=== PATIENT | female | born 1980 | race Caucasian/White ===

== ENCOUNTER 2018-07-21 15:30 | Emergency (ER) | payer OTHER ==
--- NOTE | 2018-07-21 15:34 | PDOC ---
History of Present Illness - History of Present Illness Initial Comments: 07/21/18 16:17 The patient is a 38 year old female with a significant PMH of asthma who presents to the emergency department with a rash between the breast and upper abdomen for the past few days. Patient states the rash is burning and itchy. Patient reports it worsened yesterday prompting her to come to the ER. Patient applied cortisone cream 4-5 times a day for the past few days with no improvement. Patient denies any new pets, detergents, or unusual foods. The patient denies chest pain, shortness of breath, headache and dizziness. Denies fever, chills, nausea, vomit, diarrhea and constipation. Denies dysuria, frequency, urgency and hematuria. Allergies: NKA Past surgical history: None reported. Social history: No reported alcohol, drug or cigarette use. <Tracey Gibbs - Last Filed: 07/21/18 16:17> - General History Source: Patient Exam Limitations: No Limitations <Liz Powell - Last Filed: 07/22/18 09:14> - General Chief Complaint: Rash Stated Complaint: RASH TO AREA UNDER BREAST AND UPPER ABDOMEN Time Seen by Provider: 07/21/18 15:33 Past History <Tracey Gibbs - Last Filed: 07/21/18 16:17> - Past Medical History Asthma: Yes - Immunization History Immunization Up to Date: Yes - Suicide/Smoking/Psychosocial Hx Smoking Status: No Smoking History: Never smoked Have you smoked in the past 12 months: No Number of Cigarettes Smoked Daily: 0 'Breaking Loose' booklet given: 10/02/13 Hx Alcohol Use: No Drug/Substance Use Hx: No Substance Use Type: None <Liz Powell - Last Filed: 07/22/18 09:14> - Past Medical History Allergies/Adverse Reactions: Allergies Allergy/AdvReac Type Severity Reaction Status Date / Time No Known Allergies Allergy Verified 07/21/18 15:31 Home Medications: Ambulatory Orders Loratadine [Claritin] 10 mg PO DAILY #30 tablet 11/16/14 Montelukast Na [Singulair -] 10 mg PO DAILY 01/24/16 Cephalexin [Keflex] 500 mg PO QID #20 capsule 07/21/18 Clotrimazole [Antifungal] 113 gm TP BID #1 tube 07/21/18 Review of Systems - Review of Systems Able to Perform ROS?: Yes Comments:: 07/21/18 16:19 ADULT ROS GENERAL/CONSTITUTIONAL: No fever or chills. No weakness. HEAD, EYES, EARS, NOSE AND THROAT: No change in vision. No ear pain or discharge. No sore throat. CARDIOVASCULAR: No chest pain or shortness of breath. RESPIRATORY: No cough, wheezing, or hemoptysis. GASTROINTESTINAL: No nausea, vomiting, diarrhea or constipation. GENITOURINARY: No dysuria, frequency, or change in urination. MUSCULOSKELETAL: No joint or muscle swelling or pain. No neck or back pain. SKIN: (+) rash NEUROLOGIC: No headache, vertigo, loss of consciousness, or change in strength/ sensation. ENDOCRINE: No increased thirst. No abnormal weight change. HEMATOLOGIC/LYMPHATIC: No anemia, easy bleeding, or history of blood clots. ALLERGIC/IMMUNOLOGIC: No hives or skin allergy. <Tracey Gibbs - Last Filed: 07/21/18 16:17> *Physical Exam - Vital Signs Last Vital Signs Temp Pulse Resp BP Pulse Ox 98.4 F 80 16 129/75 99 07/21/18 15:31 07/21/18 15:31 07/21/18 15:31 07/21/18 15:31 07/21/18 15:31 - Physical Exam Comments: 07/21/18 16:19 ADULT PE GENERAL: The patient is in no acute distress. HEAD: Normal with no signs of trauma. EYES: PERRLA, EOMI, sclera anicteric, conjunctiva clear. ENT: Ears normal, nares patent, oropharynx clear without exudates. Moist mucous membranes. NECK: Normal range of motion, supple without lymphadenopathy, JVD, or masses. LUNGS: Breath sounds equal, clear to auscultation bilaterally. No wheezes, and no crackles. HEART:Regular rate and rhythm, normal S1 and S2 without murmur, rub or gallop. ABDOMEN: Soft, nontender, normoactive bowel sounds. No guarding, no rebound. No masses palpable. EXTREMITIES: Normal range of motion, no edema. No clubbing or cyanosis. No erythema, or tenderness. NEUROLOGICAL: Cranial nerves II through XII grossly intact. Normal speech. No focal neurological deficits. MUSCULOSKELETAL: Back non-tender to palpation, no CVA tenderness SKIN: Warm, Dry, normal turgor.(+) Chest wall under the inframammary fold has a diffuse erythematous rash, pruritic, small macular lesions. No vesicles. No pustules. <Tracey Gibbs - Last Filed: 07/21/18 16:17> Medical Decision Making - Medical Decision Making 07/21/18 16:23 38 yo F presenting with a rash inframammary ? fungal infection Pt placed cortisone cream on the area Pt noted increased redness and swelling Differential diagnosis is still broad - fungal infection vs. contact dermatitis vs. super infection Will ask pt to hold on steroid cream Will ask pt to start taking antifungal Will ask pt to start taking keflex Follow up with in 2 days clinical impression: rash, initial presentation 07/22/18 09:14 <Liz Powell - Last Filed: 07/22/18 09:14> *DC/Admit/Observation/Transfer - Attestations Scribe Attestion: 07/21/18 16:22 Documentation prepared by Tracey Gibbs, acting as emergency medical service manager for Liz Powell MD. <Tracey Gibbs - Last Filed: 07/21/18 16:17> - Discharge Dispostion Decision to Admit order: No <Liz Powell - Last Filed: 07/22/18 09:14> Diagnosis at time of Disposition: Rash and nonspecific skin eruption - Discharge Dispostion Disposition: HOME Condition at time of disposition: Stable - Prescriptions Prescriptions: Cephalexin [Keflex] 500 mg PO QID #20 capsule Clotrimazole [Antifungal] 113 gm TP BID #1 tube - Referrals Referrals: Cristina Rain [Staff Physician] - - Patient Instructions Printed Discharge Instructions: DI for Rash Additional Instructions: Ms brewer Thank you for coming in to the ER today Please be sure to follow up with your primary care physician or the 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
[2018-07-21 15:37] VITALS: BP 129/75; PULSE 80; TEMP 98.4; BMI 31.7
== END 2018-07-21 17:06 | disposition home or self-care (01) ==
LOC: FER 15:30
DX: R21 Rash and other nonspecific skin eruption (principal); J45.909 Unspecified asthma, uncomplicated
CPT/HCPCS: 99281-25

== ENCOUNTER 2019-02-15 10:18 | Emergency (ER) | payer OTHER | END 2019-02-15 13:14 | disposition home or self-care (01) | LOC: FER 10:18 ==

== ENCOUNTER 2021-03-08 19:10 | Emergency (ER) | payer OTHER ==
[2021-03-08 19:28] VITALS: BP 159/85; PULSE 89; TEMP 99; BMI 25.0
[2021-03-08] MEDS ORDERED: IBUPROFEN 600 MG TABLET (FP) PO ONE (20:22)
[2021-03-08] MEDS ORDERED: IBUPROFEN 400 MG TABLET (FP) PO ONE (20:25)
== END 2021-03-08 20:27 | disposition home or self-care (01) ==
LOC: FER 19:10
DX: L02.215 Cutaneous abscess of perineum (principal)
CPT/HCPCS: 87070; 87077; 87205; 99283-25

== ENCOUNTER 2021-06-11 19:22 | Emergency (ER) | payer OTHER ==
[2021-06-11] MEDS ORDERED: ACETAMINOPHEN 500 MG TABLET (FP) PO ONE (19:39)
[2021-06-11 19:54] VITALS: BP 149/85; PULSE 112; TEMP 99; BMI 22.9
[2021-06-11] MEDS ORDERED: ACETAMINOPHEN 500 MG TABLET (FP) ONE (20:00)
== END 2021-06-11 20:43 | disposition home or self-care (01) ==
LOC: FER 19:22
DX: S99.922A Unspecified injury of left foot, initial encounter (principal); W22.8XXA Striking against or struck by other objects, initial encounter
CPT/HCPCS: 73660-TC-LT-FY; 99283-25

== ENCOUNTER 2023-02-17 18:50 | Emergency (ER) | payer OTHER ==
[2023-02-17 19:19] VITALS: BP 145/93; PULSE 91; RESP 18; TEMP 97.8; BMI 19.3
[2023-02-17] MEDS ORDERED: KETOROLAC TROMETHAMINE 60 MG/2 ML VIAL IM ONE (19:32)
[2023-02-17] MEDS ORDERED: predniSONE 20 MG TABLET (UD) PO ONE (19:32)
[2023-02-17] MEDS ORDERED: KETOROLAC TROMETHAMINE 60 MG/2 ML VIAL ONE (19:41)
[2023-02-17] MEDS ORDERED: predniSONE 20 MG TABLET (UD) ONE (19:41)
== END 2023-02-17 20:48 | disposition home or self-care (01) ==
LOC: FER 18:50
PROC: 3E0233Z Introduction of Anti-inflammatory into Muscle, Percutaneous Approach (ICD-10-PCS; principal; 2023-02-17)
DX: M54.42 Lumbago with sciatica, left side (principal); M54.41 Lumbago with sciatica, right side; R07.9 Chest pain, unspecified
CPT/HCPCS: 93005; 99284-25

== ENCOUNTER 2023-03-24 05:59 | Inpatient (IN) | payer OTHER ==
[2023-03-24] MEDS ORDERED: SODIUM CHLORIDE 1,000 ML IV ONE (06:45)
[2023-03-24 08:38] LABS: HEMATOCRIT 51.4 % (32.4-45.2); HEMOGLOBIN 17.5 G/dL (10.7-15.3); MCH 30.6 pg (25.7-33.7); MEAN CELL VOLUME 90.2 fl (80-96); MEAN PLT VOLUME 9.1 fl (7.5-11.1); PLATELET COUNT 338.2 10^3/uL (134-434); RDW 13.2 % (11.6-15.6); WHITE BLOOD COUNT 23.2 10^3/uL (4.0-10.8)
[2023-03-24 09:04] LABS: ALBUMIN 4.8 g/dl (3.4-5.0); BILIRUBIN,TOTAL 0.4 mg/dl (0.2-1); BLOOD UREA NITROGEN 19.3 mg/dl (7-18); CALCIUM 10.3 mg/dl (8.5-10.1); CREATININE 0.9 mg/dl (0.6-1.3); POTASSIUM 4.4 mmol/L (3.5-5.1); SGOT/AST 27.2 U/L (15-37); TOT PROT 8.2 g/dl (6.4-8.2)
[2023-03-24 09:23] LABS: PLATELET ESTIMATE ADEQUATE
[2023-03-24] MEDS ORDERED: ONDANSETRON 4 MG/2 ML VIAL IVPB ONE (09:24)
[2023-03-24] MEDS ORDERED: SODIUM CHLORIDE 1,000 ML IV STA ×2 (09:24→10:25)
[2023-03-24] MEDS ORDERED: FAMOTIDINE 20 MG/50 ML IVPB 20 MG/50 ML MG IVPB ONE ×2 (09:25→10:04)
[2023-03-24 09:47] LABS: VENOUS BASE EXCESS -23.2 mmol/L (-2-2); VENOUS O2 SATURATION 86.6 % (70-80); VENOUS PCO2 25.9 mmHg (38-52)
[2023-03-24 09:49] LABS: VENOUS PH 7.018 (7.310-7.410)
[2023-03-24 10:02] LABS: LACTIC ACID 2.3 mmol/L (0.4-2.0)
[2023-03-24] MEDS ORDERED: ONDANSETRON 4 MG/2 ML VIAL ONE (10:04)
[2023-03-24 11:03] LABS: EPITHELIAL CELLS RARE /hpf
[2023-03-24 12:48] LABS: HEMATOCRIT 47.4 % (32.4-45.2); HEMOGLOBIN 16.5 G/dL (10.7-15.3); MCH 31.5 pg (25.7-33.7); MCHC 34.8 g/dl (32.0-36.0); MEAN CELL VOLUME 90.4 fl (80-96); MEAN PLT VOLUME 8.9 fl (7.5-11.1); PLATELET COUNT 309.5 10^3/uL (134-434); RBC 5.24 10^6/uL (3.60-5.2); RDW 13.1 % (11.6-15.6); WHITE BLOOD COUNT 22.4 10^3/uL (4.0-10.8)
[2023-03-24 12:51] LABS: ALBUMIN 4.1 g/dl (3.4-5.0); BILIRUBIN,TOTAL 0.3 mg/dl (0.2-1); CALCIUM 8.4 mg/dl (8.5-10.1); CREATININE 0.7 mg/dl (0.6-1.3); POTASSIUM 4.3 mmol/L (3.5-5.1); SGOT/AST 26.5 U/L (15-37); SGPT/ALT 31.9 U/L (7-52); TOT PROT 7.1 g/dl (6.4-8.2)
[2023-03-24 13:51] LABS: VENOUS BASE EXCESS -26.7 mmol/L (-2-2); VENOUS O2 SATURATION 83.3 % (70-80); VENOUS PCO2 27.4 mmHg (38-52)
[2023-03-24] MEDS ORDERED: INSULIN REGULAR HUMAN 100 UNITS/ML *VIAL* (FOR IVP) IVPUSH ONE ×2 (13:53→18:23)
[2023-03-24 13:56] LABS: VENOUS PH 6.912 (7.310-7.410)
[2023-03-24] MEDS ORDERED: DEXTROSE 5%-NORMAL SALINE 1,000 ML IV SCH (14:00)
[2023-03-24] MEDS ORDERED: INSULIN REGULAR 100 UNITS in SODIUM CHLORIDE 99 ML IVPB SCH ×4 (14:00→18:30)
[2023-03-24 14:14] LABS: LACTIC ACID 2.3 mmol/L (0.4-2.0)
[2023-03-24] MEDS ORDERED: INSULIN REGULAR HUMAN 100 UNITS/ML *VIAL ONE ×3 (14:22→19:09)
[2023-03-24] MEDS ORDERED: DEXTROSE 5%-0.45% SALINE 995 ML with POTASSIUM CHLORIDE 10 MEQ IV SCH (14:30)
[2023-03-24] MEDS: POTASSIUM CHLORIDE 10 MEQ in DEXTROSE 5%-0.45% SALINE 995 ML IV SCH ×2 (15:02→18:09)
[2023-03-24] MEDS ORDERED: D5-1/2NS+20 MEQ KCL - 1,000 ML IV SCH (18:00)
[2023-03-24] MEDS ORDERED: DEXTROSE 50%-WATER 25 GM/50 ML DISP.SYRIN IVPUSH PRN (18:23)
[2023-03-24] MEDS ORDERED: ONDANSETRON 4 MG/2 ML VIAL IVPUSH PRN (18:23)
[2023-03-24] MEDS ORDERED: METOPROLOL TARTRATE 5 MG/5 ML VIAL IVPUSH ONE (18:53)
[2023-03-24 19:02] LABS: BASO % 0.1 % (0-2.0); HEMATOCRIT 44.3 % (32.4-45.2); HEMOGLOBIN 14.1 GM/dL (10.7-15.3); LYMPH % 5.7 % (8-40); MCH 28.9 pg (25.7-33.7); MCHC 31.7 g/dl (32.0-36.0); MEAN CELL VOLUME 91.2 fl (80-96); MEAN PLT VOLUME 8.9 fl (7.5-11.1); MONO % 10.7 % (3.8-10.2); NEUT % 83.5 % (42.8-82.8); PLATELET COUNT 299 10^3/uL (134-434); RBC 4.86 M/mm3 (3.60-5.2); RDW 12.6 % (11.6-15.6); WHITE BLOOD COUNT 18.4 K/mm3 (4.0-10.0)
[2023-03-24 19:09] LABS: POTASSIUM 3.5 mmol/L (3.5-5.1)
[2023-03-24 19:11] LABS: CALCIUM 9.2 mg/dL (8.5-10.1)
[2023-03-24 19:12] LABS: BLOOD UREA NITROGEN 16.8 mg/dL (7-18)
[2023-03-24 19:15] LABS: CREATININE 1.1 mg/dL (0.55-1.3)
[2023-03-24 19:16] LABS: BILIRUBIN,TOTAL 0.2 mg/dL (0.2-1)
[2023-03-24] MEDS: PARoxetine HCL 10 MG TABLET PO SCH (19:20)
[2023-03-24 19:21] LABS: LACTIC ACID 3.6 mmol/L (0.4-2.0)
[2023-03-24 19:21] LABS: ALBUMIN 2.9 g/dl (3.4-5.0); TOT PROT 6.6 g/dl (6.4-8.2)
[2023-03-24] MEDS ORDERED: LACTATED RINGERS SOLUTION 1000 ML INFUS.BAG IV ONE (20:22)
[2023-03-24 21:13] LABS: POTASSIUM 3.6 mmol/L (3.5-5.1)
[2023-03-24 21:16] LABS: CALCIUM 9.5 mg/dL (8.5-10.1)
[2023-03-24 21:17] LABS: ALBUMIN 2.9 g/dl (3.4-5.0); BLOOD UREA NITROGEN 17.2 mg/dL (7-18)
[2023-03-24 21:20] LABS: CREATININE 1.1 mg/dL (0.55-1.3)
[2023-03-24 21:21] LABS: BILIRUBIN,TOTAL 0.4 mg/dL (0.2-1); TOT PROT 6.4 g/dl (6.4-8.2)
[2023-03-24] MEDS: KCL 10 MEQ IVPB 10 MEQ/100 ML INFUS.BAG IVPB SCH ×2 (21:27→21:51)
[2023-03-24] MEDS: INSULIN SLIDING SCALE (NOVOLOG) 1 VIAL SQ SCH (21:29)
[2023-03-24] MEDS: MUPIROCIN 2% TOPICAL OINTMENT FOR DECOLONIZATION NS SCH (21:52)
[2023-03-24] MEDS: CHLORHEXIDINE GLUCONATE 4% CLEANSER FOR DECOLONIZATION TP SCH (21:53)
[2023-03-24 21:57] LABS: VENOUS BASE EXCESS -16.7 mmol/L (-2-2); VENOUS O2 SATURATION 21.2 % (70-80); VENOUS PCO2 32.5 mmHg (38-52)
[2023-03-24 21:58] LABS: VENOUS PH 7.148 (7.310-7.410)
[2023-03-24] MEDS ORDERED: LACTATED RINGERS SOLUTION 1,000 ML/1,000 ML INFUS.BAG IV SCH (22:30)
[2023-03-24 22:36] LABS: LACTIC ACID 2.1 mmol/L (0.4-2.0)
[2023-03-25] MEDS ORDERED: ACETAMINOPHEN 1000 MG/100 ML BAG IVPB ONE (00:18)
[2023-03-25] MEDS ORDERED: INSULIN (NOVOLOG) ASPART 100 UNITS/ML 10ML VIAL ONE ×4 (00:31→20:59)
[2023-03-25] MEDS: INSULIN SLIDING SCALE (NOVOLOG) 1 VIAL SQ SCH ×6 (00:32→21:22)
[2023-03-25 06:00] LABS: HEMATOCRIT 37.7 % (32.4-45.2); HEMOGLOBIN 12.7 GM/dL (10.7-15.3); MCH 29.4 pg (25.7-33.7); MCHC 33.6 g/dl (32.0-36.0); MEAN CELL VOLUME 87.4 fl (80-96); MEAN PLT VOLUME 9.5 fl (7.5-11.1); PLATELET COUNT 216 10^3/uL (134-434); RBC 4.31 M/mm3 (3.60-5.2); RDW 12.5 % (11.6-15.6); WHITE BLOOD COUNT 15.2 K/mm3 (4.0-10.0)
[2023-03-25 06:07] LABS: INR 1.13 (0.83-1.09); PROTHROMBIN TIME (PATIENT) 13.1 SEC (9.7-13.0)
[2023-03-25 06:36] LABS: CHLORIDE 115 mmol/L (98-107); SODIUM 141 mmol/L (136-145)
[2023-03-25 06:38] LABS: GLUCOSE,RANDOM 179 mg/dL (74-106)
[2023-03-25 06:39] LABS: ALBUMIN 2.4 g/dl (3.4-5.0); BLOOD UREA NITROGEN 11.8 mg/dL (7-18); CO2 11 mmol/L (21-32); MAGNESIUM 1.6 mg/dL (1.8-2.4)
[2023-03-25 06:41] LABS: SGPT/ALT 31 U/L (13-61)
[2023-03-25 06:42] LABS: CREATININE 0.8 mg/dL (0.55-1.3); SGOT/AST 22 U/L (15-37)
[2023-03-25 06:43] LABS: BILIRUBIN,TOTAL 0.2 mg/dL (0.2-1); TOT PROT 5.5 g/dl (6.4-8.2)
[2023-03-25 06:44] LABS: ALK PHOS 102 U/L (45-117)
[2023-03-25 06:47] LABS: ANION GAP 15 MMOL/L (8-16); POTASSIUM 2.9 mmol/L (3.5-5.1)
[2023-03-25] MEDS ORDERED: POTASSIUM CHLORIDE TABS 20 MEQ TABLET.ER (FP) PO ONE (06:49)
[2023-03-25] MEDS: KCL 10 MEQ IVPB 10 MEQ/100 ML INFUS.BAG IVPB SCH ×3 (07:19→10:46)
[2023-03-25] MEDS ORDERED: [UNRECOGNIZED DRUG - OTHER] IVPB ONE (08:00)
[2023-03-25] MEDS ORDERED: MAGNESIUM SULFATE IVPB ONE (08:00)
[2023-03-25 09:14] LABS: ANISOCYTOSIS 0; MACROCYTOSIS 0
[2023-03-25 09:33] LABS: PHOSPHOROUS 1.4 mg/dL (2.5-4.9)
[2023-03-25] MEDS: MUPIROCIN 2% TOPICAL OINTMENT FOR DECOLONIZATION NS SCH ×2 (11:20→21:32)
[2023-03-25] MEDS: ENOXAPARIN NA (PORCINE) 40 MG/0.4 ML DISP.SYRIN SQ SCH (11:21)
[2023-03-25] MEDS: PARoxetine HCL 10 MG TABLET PO SCH (11:21)
[2023-03-25] MEDS ORDERED: FAMOTIDINE 20 MG TABLET PO ONE (12:55)
[2023-03-25] MEDS: EZETIMIBE 10 MG TABLET (FP) PO SCH (12:56)
[2023-03-25] MEDS: BENZOCAINE/MENTH/CETYLPYRD CL 1 EACH LOZENGE MM PRN ×2 (13:24→21:22)
[2023-03-25] MEDS: BUDESONIDE/FORMETEROL FUMARATE 160/4.5 mcg INHALER IH SCH ×2 (13:24→21:32)
[2023-03-25] MEDS: CEFTRIAXONE 1 GM in DEXTROSE 5%-WATER - 50 ML IVPB SCH (13:55)
[2023-03-25] MEDS ORDERED: LACTATED RINGERS SOLUTION 1000 ML INFUS.BAG IV SCH (14:45)
[2023-03-25] MEDS: ACETAMINOPHEN 1000 MG/100 ML BAG IVPB PRN ×2 (15:02→21:56)
[2023-03-25 15:08] LABS: POTASSIUM 3.9 mmol/L (3.5-5.1)
[2023-03-25 15:09] LABS: CALCIUM 9.7 mg/dL (8.5-10.1)
[2023-03-25 15:10] LABS: BLOOD UREA NITROGEN 10.1 mg/dL (7-18); MAGNESIUM 1.7 mg/dL (1.8-2.4)
[2023-03-25 15:13] LABS: CREATININE 0.9 mg/dL (0.55-1.3); PHOSPHOROUS 1.8 mg/dL (2.5-4.9)
[2023-03-25] MEDS ORDERED: PROCHLORPERAZINE INJECTION 10 MG/2 ML VIAL IVPB ONE (15:36)
[2023-03-25] MEDS ORDERED: hydrOXYzine PAMOATE 25 MG CAPSULE (FP) PO ONE (15:42)
[2023-03-25] MEDS ORDERED: MAGNESIUM SULF 50% (8.12 MEQ/2 ML-1 GM VIAL) IVPB ONE (15:50)
[2023-03-25] MEDS ORDERED: ALPRAZolam 0.25 MG TABLET PO ONE (15:54)
[2023-03-25] MEDS: NAPH,MB-DB/K PH,MBDB POWDER PACKET PO SCH ×2 (16:07→21:23)
[2023-03-25] MEDS: SODIUM BICARBONATE 650 MG TABLET PO SCH ×2 (16:51→21:23)
[2023-03-25] MEDS: NYSTATIN 500,000 UNITS/5 ML SUSPENSION PO SCH (17:49)
[2023-03-25] MEDS: SODIUM CHLORIDE 0.45%/POT 20 MEQ/1,000 ML INFUS.BAG IV SCH (21:22)
[2023-03-25] MEDS: ATORVASTATIN CA 20 MG TABLET (FP) PO SCH (21:22)
[2023-03-25] MEDS: CYCLOBENZAPRINE HCL 10 MG TABLET (FP) PO SCH (21:22)
[2023-03-25] MEDS: CHLORHEXIDINE GLUCONATE 4% CLEANSER FOR DECOLONIZATION TP SCH (21:23)
[2023-03-25] MEDS: TRIMETHOBENZAMIDE HCL 200MG/2ML INJ IM PRN (21:39)
[2023-03-26] MEDS ORDERED: INSULIN (NOVOLOG) ASPART 100 UNITS/ML 10ML VIAL ONE (00:17)
[2023-03-26] MEDS: INSULIN SLIDING SCALE (NOVOLOG) 1 VIAL SQ SCH ×6 (00:18→21:48)
[2023-03-26] MEDS: NYSTATIN 500,000 UNITS/5 ML SUSPENSION PO SCH ×3 (00:18→13:26)
[2023-03-26] MEDS: SODIUM CHLORIDE 0.45%/POT 20 MEQ/1,000 ML INFUS.BAG IV SCH ×2 (05:36→13:53)
[2023-03-26] MEDS: NAPH,MB-DB/K PH,MBDB POWDER PACKET PO SCH (05:38)
[2023-03-26] MEDS: ACETAMINOPHEN 1000 MG/100 ML BAG IVPB PRN (05:49)
[2023-03-26 07:16] LABS: BASO % 0.1 % (0-2.0); HEMATOCRIT 36.1 % (32.4-45.2); HEMOGLOBIN 12.3 GM/dL (10.7-15.3); LYMPH % 6.5 % (8-40); MCH 29.7 pg (25.7-33.7); MCHC 34.2 g/dl (32.0-36.0); MEAN PLT VOLUME 9.2 fl (7.5-11.1); MONO % 7.9 % (3.8-10.2); NEUT % 85.5 % (42.8-82.8); PLATELET COUNT 152 10^3/uL (134-434); RBC 4.15 M/mm3 (3.60-5.2); RDW 12.6 % (11.6-15.6); WHITE BLOOD COUNT 10.4 K/mm3 (4.0-10.0)
[2023-03-26 07:37] LABS: POTASSIUM 3.3 mmol/L (3.5-5.1)
[2023-03-26 07:57] LABS: CALCIUM 9.2 mg/dL (8.5-10.1)
[2023-03-26 07:58] LABS: ALBUMIN 2.1 g/dl (3.4-5.0); BLOOD UREA NITROGEN 11.2 mg/dL (7-18); MAGNESIUM 2.3 mg/dL (1.8-2.4)
[2023-03-26 08:01] LABS: CREATININE 0.7 mg/dL (0.55-1.3); PHOSPHOROUS 2.5 mg/dL (2.5-4.9)
[2023-03-26 08:02] LABS: BILIRUBIN,TOTAL 0.4 mg/dL (0.2-1)
[2023-03-26 08:03] LABS: TOT PROT 5.2 g/dl (6.4-8.2)
[2023-03-26] MEDS: MUPIROCIN 2% TOPICAL OINTMENT FOR DECOLONIZATION NS SCH ×2 (09:03→21:31)
[2023-03-26] MEDS: ENOXAPARIN NA (PORCINE) 40 MG/0.4 ML DISP.SYRIN SQ SCH (09:03)
[2023-03-26] MEDS: PARoxetine HCL 10 MG TABLET PO SCH (09:03)
[2023-03-26] MEDS: EZETIMIBE 10 MG TABLET (FP) PO SCH (09:03)
[2023-03-26] MEDS: CEFTRIAXONE 1 GM in DEXTROSE 5%-WATER - 50 ML IVPB SCH (09:04)
[2023-03-26] MEDS: BUDESONIDE/FORMETEROL FUMARATE 160/4.5 mcg INHALER IH SCH ×2 (09:04→21:31)
[2023-03-26] MEDS ORDERED: POTASSIUM CHLORIDE ORAL LIQUID 20 MEQ/15 ML PO ONE (09:15)
[2023-03-26] MEDS: INSULIN (LEVEMIR) 100 UNITS/ML UNITS SQ SCH ×2 (10:32→21:48)
[2023-03-26] MEDS: TRIMETHOBENZAMIDE HCL 200MG/2ML INJ IM PRN (10:34)
[2023-03-26] MEDS ORDERED: CEFTRIAXONE 1 GM in DEXTROSE 5%-WATER - 50 ML IVPB ONE ×2 (13:57→22:00)
[2023-03-26] MEDS: METOCLOPRAMIDE HCL INJECTION 10 MG/2 ML VIAL IVPUSH SCH ×2 (14:07→21:31)
[2023-03-26] MEDS: KCL 10 MEQ IVPB 10 MEQ/100 ML INFUS.BAG IVPB SCH ×3 (14:08→18:31)
[2023-03-26] MEDS: SODIUM BICARBONATE 650 MG TABLET PO SCH ×2 (14:09→21:30)
[2023-03-26] MEDS: PANTOPRAZOLE SODIUM 40 MG VIAL IVPUSH SCH (14:15)
[2023-03-26 15:40] VITALS: BMI 19.4
[2023-03-26] MEDS ORDERED: ACETAMINOPHEN 1000 MG/100 ML BAG IVPB ONE (17:19)
[2023-03-26] MEDS: MAG HYDROX/ALH/SMC/DPHA/LIDO 240 ML MOUTHWASH MM SCH (18:32)
[2023-03-26] MEDS ORDERED: PHENOL 177 ML SPRAY BOTTLE MM PRN (19:37)
[2023-03-26] MEDS: ATORVASTATIN CA 20 MG TABLET (FP) PO SCH (21:30)
[2023-03-26] MEDS: CYCLOBENZAPRINE HCL 10 MG TABLET (FP) PO SCH (21:30)
[2023-03-26] MEDS: POLYETHYLENE GLYCOL (HEALTHYLAX) 3350 17 GM PACKET PO SCH (21:31)
[2023-03-26] MEDS: CHLORHEXIDINE GLUCONATE 4% CLEANSER FOR DECOLONIZATION TP SCH (21:31)
[2023-03-27] MEDS: INSULIN SLIDING SCALE (NOVOLOG) 1 VIAL SQ SCH ×6 (02:11→21:17)
[2023-03-27] MEDS: MAG HYDROX/ALH/SMC/DPHA/LIDO 240 ML MOUTHWASH MM SCH ×4 (02:11→19:03)
[2023-03-27] MEDS: METOCLOPRAMIDE HCL INJECTION 10 MG/2 ML VIAL IVPUSH SCH ×2 (02:42→09:10)
[2023-03-27] MEDS ORDERED: DEXTROSE 50%-WATER - 25 GM/50 ML VIAL IVPUSH ONE (05:29)
[2023-03-27] MEDS: INSULIN (LEVEMIR) 100 UNITS/ML UNITS SQ SCH ×2 (06:13→22:51)
[2023-03-27] MEDS: POLYETHYLENE GLYCOL (HEALTHYLAX) 3350 17 GM PACKET PO SCH ×2 (09:08→22:44)
[2023-03-27] MEDS: ENOXAPARIN NA (PORCINE) 40 MG/0.4 ML DISP.SYRIN SQ SCH (09:11)
[2023-03-27] MEDS: PANTOPRAZOLE SODIUM 40 MG VIAL IVPUSH SCH (09:11)
[2023-03-27] MEDS: PARoxetine HCL 10 MG TABLET PO SCH (09:12)
[2023-03-27] MEDS: EZETIMIBE 10 MG TABLET (FP) PO SCH (09:12)
[2023-03-27] MEDS: MUPIROCIN 2% TOPICAL OINTMENT FOR DECOLONIZATION NS SCH (09:12)
[2023-03-27] MEDS: BUDESONIDE/FORMETEROL FUMARATE 160/4.5 mcg INHALER IH SCH (09:12)
[2023-03-27] MEDS ORDERED: CEFTRIAXONE 2 GM in DEXTROSE 5%-WATER 100 ML IVPB ONE (10:00)
[2023-03-27 16:12] LABS: BASO % 0.3 % (0-2.0); EOS % 0.2 % (0-4.5); HEMATOCRIT 35.3 % (32.4-45.2); HEMOGLOBIN 11.8 GM/dL (10.7-15.3); MCHC 33.4 g/dl (32.0-36.0); MEAN CELL VOLUME 86.9 fl (80-96); MEAN PLT VOLUME 9.5 fl (7.5-11.1); MONO % 10.9 % (3.8-10.2); NEUT % 76.6 % (42.8-82.8); PLATELET COUNT 124 10^3/uL (134-434); RBC 4.06 M/mm3 (3.60-5.2); RDW 12.9 % (11.6-15.6)
[2023-03-27 16:54] LABS: CHLORIDE 105 mmol/L (98-107); SODIUM 142 mmol/L (136-145)
[2023-03-27 16:59] LABS: CALCIUM 8.6 mg/dL (8.5-10.1)
[2023-03-27 17:00] LABS: CO2 23 mmol/L (21-32); GLUCOSE,RANDOM 134 mg/dL (74-106)
[2023-03-27 17:03] LABS: CREATININE 0.4 mg/dL (0.55-1.3); SGOT/AST 26 U/L (15-37); SGPT/ALT 36 U/L (13-61)
[2023-03-27 17:04] LABS: BILIRUBIN,TOTAL 0.5 mg/dL (0.2-1)
[2023-03-27] MEDS: SODIUM CHLORIDE 0.45%/POT 20 MEQ/1,000 ML INFUS.BAG IV SCH ×2 (17:05→19:19)
[2023-03-27 17:06] LABS: ALK PHOS 128 U/L (45-117)
[2023-03-27 17:08] LABS: N-TERMINAL BNP 7306.4 pg/ml (5-125)
[2023-03-27 17:11] LABS: ANION GAP 14 MMOL/L (8-16); POTASSIUM 2.9 mmol/L (3.5-5.1)
[2023-03-27] MEDS: SUCRALFATE 1 GM TABLET (FP) PO SCH (17:19)
[2023-03-27] MEDS ORDERED: POTASSIUM CHLORIDE TABS 20 MEQ TABLET.ER (FP) PO ONE (18:00)
[2023-03-27] MEDS ORDERED: INSULIN (NOVOLOG) ASPART 100 UNITS/ML 10ML VIAL ONE (18:16)
[2023-03-27] MEDS ORDERED: PHENOL 177 ML SPRAY BOTTLE MM PRN (18:49)
[2023-03-27] MEDS ORDERED: BENZOCAINE/MENTH/CETYLPYRD CL 1 EACH LOZENGE MM PRN (18:49)
[2023-03-27] MEDS ORDERED: DEXTROSE 50%-WATER 25 GM/50 ML DISP.SYRIN IVPUSH PRN (18:49)
[2023-03-27] MEDS: KCL 10 MEQ IVPB 10 MEQ/100 ML INFUS.BAG IVPB SCH ×4 (18:56→22:43)
[2023-03-27] MEDS ORDERED: CHLORHEXIDINE GLUCONATE 4% CLEANSER FOR DECOLONIZATION TP SCH (22:00)
[2023-03-27] MEDS ORDERED: MUPIROCIN 2% TOPICAL OINTMENT FOR DECOLONIZATION NS SCH (22:00)
[2023-03-27] MEDS: ATORVASTATIN CA 20 MG TABLET (FP) PO SCH (22:30)
[2023-03-27] MEDS: CYCLOBENZAPRINE HCL 10 MG TABLET (FP) PO SCH (22:43)
[2023-03-28] MEDS: MAG HYDROX/ALH/SMC/DPHA/LIDO 240 ML MOUTHWASH MM SCH ×4 (00:58→17:24)
[2023-03-28] MEDS: BUDESONIDE/FORMETEROL FUMARATE 160/4.5 mcg INHALER IH SCH ×3 (01:36→23:39)
[2023-03-28] MEDS: SUCRALFATE 1 GM TABLET (FP) PO SCH ×2 (06:20→17:17)
[2023-03-28] MEDS: INSULIN (LEVEMIR) 100 UNITS/ML UNITS SQ SCH ×2 (07:19→23:37)
[2023-03-28] MEDS: CEFTRIAXONE 2 GM in DEXTROSE 5%-WATER 100 ML IVPB SCH (09:47)
[2023-03-28] MEDS: PARoxetine HCL 10 MG TABLET PO SCH (09:48)
[2023-03-28] MEDS: EZETIMIBE 10 MG TABLET (FP) PO SCH (09:48)
[2023-03-28] MEDS: POLYETHYLENE GLYCOL (HEALTHYLAX) 3350 17 GM PACKET PO SCH ×2 (09:51→23:38)
[2023-03-28 10:03] LABS: POTASSIUM 3.2 mmol/L (3.5-5.1)
[2023-03-28 10:07] LABS: BLOOD UREA NITROGEN 5.8 mg/dL (7-18); CALCIUM 8.5 mg/dL (8.5-10.1)
[2023-03-28 10:08] LABS: MAGNESIUM 1.9 mg/dL (1.8-2.4)
[2023-03-28 10:10] LABS: CREATININE 0.4 mg/dL (0.55-1.3); PHOSPHOROUS 1.5 mg/dL (2.5-4.9)
[2023-03-28 10:12] LABS: BILIRUBIN,TOTAL 0.3 mg/dL (0.2-1); TOT PROT 5.2 g/dl (6.4-8.2)
[2023-03-28] MEDS: ENOXAPARIN NA (PORCINE) 40 MG/0.4 ML DISP.SYRIN SQ SCH (10:40)
[2023-03-28] MEDS: PANTOPRAZOLE SODIUM 40 MG VIAL IVPUSH SCH (10:49)
[2023-03-28] MEDS ORDERED: POTASSIUM CHLORIDE ORAL LIQUID 20 MEQ/15 ML PO ONE (11:50)
[2023-03-28] MEDS: INSULIN SLIDING SCALE (NOVOLOG) 1 VIAL SQ SCH ×3 (12:00→18:32)
[2023-03-28] MEDS: NAPH,MB-DB/K PH,MBDB POWDER PACKET PO SCH ×2 (14:48→23:38)
[2023-03-28] MEDS: KCL 10 MEQ IVPB 10 MEQ/100 ML INFUS.BAG IVPB SCH ×3 (14:49→20:19)
[2023-03-28] MEDS ORDERED: POTASSIUM CHLORIDE TABS 20 MEQ TABLET.ER (FP) PO ONE (15:30)
[2023-03-28] MEDS ORDERED: INSULIN (NOVOLOG) ASPART 100 UNITS/ML 10ML VIAL ONE (22:33)
[2023-03-28] MEDS: SODIUM CHLORIDE 0.45%/POT 20 MEQ/1,000 ML INFUS.BAG IV SCH (23:36)
[2023-03-28] MEDS: ATORVASTATIN CA 20 MG TABLET (FP) PO SCH (23:37)
[2023-03-28] MEDS: CYCLOBENZAPRINE HCL 10 MG TABLET (FP) PO SCH (23:37)
[2023-03-28] MEDS: MELATONIN 5 MG TABLETS PO PRN (23:47)
[2023-03-29] MEDS: INSULIN SLIDING SCALE (NOVOLOG) 1 VIAL SQ SCH ×4 (00:05→18:04)
[2023-03-29] MEDS: MAG HYDROX/ALH/SMC/DPHA/LIDO 240 ML MOUTHWASH MM SCH ×4 (02:32→17:59)
[2023-03-29] MEDS ORDERED: INSULIN (NOVOLOG) ASPART 100 UNITS/ML 10ML VIAL ONE ×4 (07:19→17:44)
[2023-03-29] MEDS: SUCRALFATE 1 GM TABLET (FP) PO SCH ×2 (07:21→18:15)
[2023-03-29] MEDS: INSULIN (LEVEMIR) 100 UNITS/ML UNITS SQ SCH ×2 (07:23→23:16)
[2023-03-29] MEDS ORDERED: INSULIN (LEVEMIR) 100 UNITS/ML UNITS SQ ONE (08:19)
[2023-03-29 09:33] LABS: POTASSIUM 3.1 mmol/L (3.5-5.1)
[2023-03-29 09:40] LABS: BLOOD UREA NITROGEN 3.9 mg/dL (7-18); CALCIUM 8.9 mg/dL (8.5-10.1); MAGNESIUM 1.9 mg/dL (1.8-2.4)
[2023-03-29 09:43] LABS: CREATININE 0.4 mg/dL (0.55-1.3)
[2023-03-29 09:44] LABS: HEMATOCRIT 36.9 % (32.4-45.2); HEMOGLOBIN 12.4 GM/dL (10.7-15.3); MCH 29.4 pg (25.7-33.7); MCHC 33.5 g/dl (32.0-36.0); MEAN CELL VOLUME 87.6 fl (80-96); MEAN PLT VOLUME 9.1 fl (7.5-11.1); PLATELET COUNT 208 10^3/uL (134-434); RBC 4.22 M/mm3 (3.60-5.2); RDW 13.5 % (11.6-15.6); WHITE BLOOD COUNT 6.7 K/mm3 (4.0-10.0)
[2023-03-29] MEDS: EZETIMIBE 10 MG TABLET (FP) PO SCH (11:24)
[2023-03-29] MEDS: PANTOPRAZOLE SODIUM 40 MG VIAL IVPUSH SCH (11:24)
[2023-03-29] MEDS: PARoxetine HCL 10 MG TABLET PO SCH (11:25)
[2023-03-29] MEDS: NAPH,MB-DB/K PH,MBDB POWDER PACKET PO SCH ×2 (11:25→23:13)
[2023-03-29] MEDS: CEFTRIAXONE 2 GM in DEXTROSE 5%-WATER 100 ML IVPB SCH (11:26)
[2023-03-29] MEDS: ENOXAPARIN NA (PORCINE) 40 MG/0.4 ML DISP.SYRIN SQ SCH (11:36)
[2023-03-29] MEDS: POLYETHYLENE GLYCOL (HEALTHYLAX) 3350 17 GM PACKET PO SCH ×2 (11:36→23:15)
[2023-03-29] MEDS: BUDESONIDE/FORMETEROL FUMARATE 160/4.5 mcg INHALER IH SCH ×2 (11:37→23:15)
[2023-03-29] MEDS: SODIUM CHLORIDE 0.45%/POT 20 MEQ/1,000 ML INFUS.BAG IV SCH ×2 (11:47→20:18)
[2023-03-29] MEDS: KCL 10 MEQ IVPB 10 MEQ/100 ML INFUS.BAG IVPB SCH ×4 (18:15→21:39)
[2023-03-29] MEDS ORDERED: POTASSIUM CHLORIDE ORAL LIQUID 20 MEQ/15 ML PO ONE (21:04)
[2023-03-29] MEDS: MELATONIN 5 MG TABLETS PO PRN (23:14)
[2023-03-29] MEDS: CYCLOBENZAPRINE HCL 10 MG TABLET (FP) PO SCH (23:14)
[2023-03-29] MEDS: ATORVASTATIN CA 20 MG TABLET (FP) PO SCH (23:14)
[2023-03-30] MEDS: MAG HYDROX/ALH/SMC/DPHA/LIDO 240 ML MOUTHWASH MM SCH ×4 (01:21→17:31)
[2023-03-30] MEDS: INSULIN SLIDING SCALE (NOVOLOG) 1 VIAL SQ SCH ×4 (01:37→17:31)
[2023-03-30] MEDS: SUCRALFATE 1 GM TABLET (FP) PO SCH ×2 (06:31→17:30)
[2023-03-30] MEDS: INSULIN (LEVEMIR) 100 UNITS/ML UNITS SQ SCH ×2 (07:23→21:17)
[2023-03-30 10:26] LABS: CHLORIDE 103 mmol/L (98-107); SODIUM 141 mmol/L (136-145)
[2023-03-30 10:37] LABS: ALBUMIN 2.3 g/dl (3.4-5.0); CALCIUM 8.7 mg/dL (8.5-10.1); CO2 25 mmol/L (21-32); GLUCOSE,RANDOM 127 mg/dL (74-106)
[2023-03-30 10:40] LABS: CREATININE 0.3 mg/dL (0.55-1.3)
[2023-03-30 10:41] LABS: SGOT/AST 57 U/L (15-37); SGPT/ALT 44 U/L (13-61)
[2023-03-30 10:42] LABS: BILIRUBIN,TOTAL 0.5 mg/dL (0.2-1)
[2023-03-30 10:43] LABS: TOT PROT 5.9 g/dl (6.4-8.2)
[2023-03-30 10:44] LABS: ALK PHOS 143 U/L (45-117)
[2023-03-30 10:50] LABS: ANION GAP 13 MMOL/L (8-16); BLOOD UREA NITROGEN 2.4 mg/dL (7-18); POTASSIUM 2.8 mmol/L (3.5-5.1)
[2023-03-30] MEDS: PANTOPRAZOLE SODIUM 40 MG VIAL IVPUSH SCH (11:30)
[2023-03-30] MEDS: ENOXAPARIN NA (PORCINE) 40 MG/0.4 ML DISP.SYRIN SQ SCH (11:30)
[2023-03-30] MEDS: PARoxetine HCL 10 MG TABLET PO SCH (11:31)
[2023-03-30] MEDS: EZETIMIBE 10 MG TABLET (FP) PO SCH (11:31)
[2023-03-30] MEDS: BUDESONIDE/FORMETEROL FUMARATE 160/4.5 mcg INHALER IH SCH ×2 (11:31→21:17)
[2023-03-30] MEDS: NAPH,MB-DB/K PH,MBDB POWDER PACKET PO SCH ×2 (11:31→21:17)
[2023-03-30] MEDS: POLYETHYLENE GLYCOL (HEALTHYLAX) 3350 17 GM PACKET PO SCH ×2 (11:32→21:18)
[2023-03-30] MEDS: CEFTRIAXONE 2 GM in DEXTROSE 5%-WATER 100 ML IVPB SCH (11:32)
[2023-03-30] MEDS ORDERED: INSULIN (NOVOLOG) ASPART 100 UNITS/ML 10ML VIAL ONE (12:04)
[2023-03-30 13:21] LABS: POTASSIUM 3.2 mmol/L (3.5-5.1)
[2023-03-30 13:22] LABS: CALCIUM 9.1 mg/dL (8.5-10.1)
[2023-03-30 13:24] LABS: ALBUMIN 2.6 g/dl (3.4-5.0)
[2023-03-30 13:27] LABS: CREATININE 0.5 mg/dL (0.55-1.3)
[2023-03-30 13:28] LABS: BILIRUBIN,TOTAL 0.4 mg/dL (0.2-1)
[2023-03-30 13:29] LABS: TOT PROT 6.6 g/dl (6.4-8.2)
[2023-03-30] MEDS: POTASSIUM CHLORIDE ORAL LIQUID 20 MEQ/15 ML PO SCH ×2 (14:28→21:17)
[2023-03-30] MEDS: SODIUM CHLORIDE 0.45%/POT 20 MEQ/1,000 ML INFUS.BAG IV SCH (21:16)
[2023-03-30] MEDS: MELATONIN 5 MG TABLETS PO PRN (21:17)
[2023-03-30] MEDS: CYCLOBENZAPRINE HCL 10 MG TABLET (FP) PO SCH (21:17)
[2023-03-30] MEDS: ATORVASTATIN CA 20 MG TABLET (FP) PO SCH (21:17)
[2023-03-31] MEDS ORDERED: INSULIN (NOVOLOG) ASPART 100 UNITS/ML 10ML VIAL ONE (00:02)
[2023-03-31] MEDS: INSULIN SLIDING SCALE (NOVOLOG) 1 VIAL SQ SCH ×4 (01:01→18:26)
[2023-03-31] MEDS: MAG HYDROX/ALH/SMC/DPHA/LIDO 240 ML MOUTHWASH MM SCH ×4 (01:11→19:27)
[2023-03-31] MEDS: INSULIN (LEVEMIR) 100 UNITS/ML UNITS SQ SCH ×2 (06:26→21:32)
[2023-03-31] MEDS: SUCRALFATE 1 GM TABLET (FP) PO SCH (06:43)
[2023-03-31 07:20] LABS: CHLORIDE 104 mmol/L (98-107); POTASSIUM 3.5 mmol/L (3.5-5.1); SODIUM 143 mmol/L (136-145)
[2023-03-31 07:23] LABS: ALBUMIN 2.3 g/dl (3.4-5.0); ANION GAP 9 MMOL/L (8-16); CALCIUM 8.5 mg/dL (8.5-10.1); CO2 30 mmol/L (21-32); GLUCOSE,RANDOM 191 mg/dL (74-106); MAGNESIUM 1.7 mg/dL (1.8-2.4)
[2023-03-31 07:26] LABS: CREATININE 0.4 mg/dL (0.55-1.3); SGPT/ALT 50 U/L (13-61)
[2023-03-31 07:27] LABS: BILIRUBIN,TOTAL 0.3 mg/dL (0.2-1); SGOT/AST 55 U/L (15-37); TOT PROT 5.9 g/dl (6.4-8.2)
[2023-03-31 07:29] LABS: ALK PHOS 145 U/L (45-117)
[2023-03-31 07:57] LABS: BLOOD UREA NITROGEN 2.1 mg/dL (7-18)
[2023-03-31] MEDS ORDERED: MAGNESIUM 1GM/D5W 100ML - 100 ML IVPB IVPB ONE (09:15)
[2023-03-31] MEDS: BUDESONIDE/FORMETEROL FUMARATE 160/4.5 mcg INHALER IH SCH ×2 (09:39→21:32)
[2023-03-31] MEDS: NAPH,MB-DB/K PH,MBDB POWDER PACKET PO SCH ×2 (09:39→21:17)
[2023-03-31] MEDS: MAGNESIUM OXIDE 400 MG TABLET (FP) PO SCH ×2 (11:10→21:17)
[2023-03-31] MEDS: PARoxetine HCL 10 MG TABLET PO SCH (11:10)
[2023-03-31] MEDS: PANTOPRAZOLE 40 MG TABLET PO SCH (11:10)
[2023-03-31] MEDS: CEFTRIAXONE 2 GM in DEXTROSE 5%-WATER 100 ML IVPB SCH (11:10)
[2023-03-31] MEDS: EZETIMIBE 10 MG TABLET (FP) PO SCH (11:10)
[2023-03-31] MEDS: POLYETHYLENE GLYCOL (HEALTHYLAX) 3350 17 GM PACKET PO SCH ×2 (11:30→21:14)
[2023-03-31] MEDS: ENOXAPARIN NA (PORCINE) 40 MG/0.4 ML DISP.SYRIN SQ SCH (11:34)
[2023-03-31] MEDS ORDERED: BENZOCAINE/MENTH/CETYLPYRD CL 1 EACH LOZENGE MM PRN (11:35)
[2023-03-31] MEDS ORDERED: MELATONIN 5 MG TABLETS PO PRN (11:35)
[2023-03-31] MEDS ORDERED: PHENOL 177 ML SPRAY BOTTLE MM PRN (11:35)
[2023-03-31] MEDS ORDERED: DEXTROSE 50%-WATER 25 GM/50 ML DISP.SYRIN IVPUSH PRN (11:35)
[2023-03-31] MEDS ORDERED: SUCRALFATE 1 GM TABLET (FP) PO SCH (16:30)
[2023-03-31] MEDS: SUCRALFATE 1 GM/10 ML UNIT DOSE CUPS PO SCH (19:28)
[2023-03-31] MEDS ORDERED: ATORVASTATIN CA 20 MG TABLET (FP) PO SCH (22:00)
[2023-03-31] MEDS ORDERED: CYCLOBENZAPRINE HCL 10 MG TABLET (FP) PO SCH (22:00)
[2023-04-01] MEDS: MAG HYDROX/ALH/SMC/DPHA/LIDO 240 ML MOUTHWASH MM SCH ×2 (00:25→05:34)
[2023-04-01] MEDS ORDERED: INSULIN (NOVOLOG) ASPART 100 UNITS/ML 10ML VIAL ONE ×2 (00:37→10:44)
[2023-04-01] MEDS: INSULIN SLIDING SCALE (NOVOLOG) 1 VIAL SQ SCH ×3 (00:41→10:45)
[2023-04-01] MEDS: SUCRALFATE 1 GM/10 ML UNIT DOSE CUPS PO SCH (06:59)
[2023-04-01] MEDS: INSULIN (LEVEMIR) 100 UNITS/ML UNITS SQ SCH (06:59)
[2023-04-01] MEDS: MAGNESIUM OXIDE 400 MG TABLET (FP) PO SCH (09:48)
[2023-04-01] MEDS: NAPH,MB-DB/K PH,MBDB POWDER PACKET PO SCH (09:48)
[2023-04-01] MEDS: PANTOPRAZOLE 40 MG TABLET PO SCH (09:49)
[2023-04-01] MEDS: POLYETHYLENE GLYCOL (HEALTHYLAX) 3350 17 GM PACKET PO SCH (09:50)
[2023-04-01] MEDS: BUDESONIDE/FORMETEROL FUMARATE 160/4.5 mcg INHALER IH SCH (09:52)
[2023-04-01] MEDS ORDERED: EZETIMIBE 10 MG TABLET (FP) PO SCH (10:00)
[2023-04-01] MEDS ORDERED: PARoxetine HCL 10 MG TABLET PO SCH (10:00)
[2023-04-01] MEDS ORDERED: CEFTRIAXONE 2 GM in DEXTROSE 5%-WATER 100 ML IVPB SCH (10:00)
[2023-04-01] MEDS ORDERED: ENOXAPARIN NA (PORCINE) 40 MG/0.4 ML DISP.SYRIN SQ SCH (10:00)
[2023-04-01 11:25] VITALS: BP 105/81; PULSE 106; RESP 12; TEMP 97.6
== END 2023-04-01 11:10 | disposition home or self-care (01) | DRG 420 ==
LOC: FER 05:59 → JICU 17:48 → J8W 03-27 18:45 → J2W 03-30 15:01
PROVIDERS: ADMIT Internal Medicine Pulmonary Disease; ATTEND Family Medicine
PROC: 0DB68ZX Excision of Stomach, Via Natural or Artificial Opening Endoscopic, Diagnostic (ICD-10-PCS; 2023-03-31)
PROC: 0DB58ZX Excision of Esophagus, Via Natural or Artificial Opening Endoscopic, Diagnostic (ICD-10-PCS; principal; 2023-03-31 11:45)
DX: E11.10 Type 2 diabetes mellitus with ketoacidosis without coma (principal); N17.9 Acute kidney failure, unspecified; E78.5 Hyperlipidemia, unspecified; E86.0 Dehydration; E87.6 Hypokalemia; R11.2 Nausea with vomiting, unspecified; R00.0 Tachycardia, unspecified; J45.30 Mild persistent asthma, uncomplicated; F41.9 Anxiety disorder, unspecified; M41.9 Scoliosis, unspecified; D72.829 Elevated white blood cell count, unspecified; K59.00 Constipation, unspecified; N39.0 Urinary tract infection, site not specified; R64 Cachexia; Z68.1 Body mass index [BMI] 19.9 or less, adult; R13.10 Dysphagia, unspecified; E87.8 Other disorders of electrolyte and fluid balance, not elsewhere classified; E11.40 Type 2 diabetes mellitus with diabetic neuropathy, unspecified; K81.9 Cholecystitis, unspecified; K21.00 Gastro-esophageal reflux disease with esophagitis, without bleeding; K29.70 Gastritis, unspecified, without bleeding
CPT/HCPCS: 36415; 71045-TC-FY; 74178-TC; 74220-TC-FY; 76705-TC; 78226-TC; 80048; 80053; 81003; 81015; 82010; 82550; 82803; 82962; 83036; 83605; 83690; 83735; 83880; 84100; 84439; 84443; 84484; 84703; 85025; 85027; 85379; 85610; 87040; 87081; 87086; 87635; 88305-TC; 93005; 93010; 93306-TC; 94010; 97116-GP; 97162-GP; 99285-25; A9537; J3480; Q9967

== ENCOUNTER 2024-09-11 13:03 | Inpatient (IN) | payer OTHER ==
[2024-09-11 13:09] VITALS: BMI 23.1
[2024-09-11] MEDS: SODIUM CHLORIDE 1,000 ML IV ONE ×2 (14:29→15:41)
[2024-09-11 14:37] LABS: HEMATOCRIT 46.6 % (32.4-45.2); HEMOGLOBIN 15.7 G/dL (10.7-15.3); MCH 31.8 pg (25.7-33.7); MCHC 33.6 g/dl (32.0-36.0); MEAN CELL VOLUME 94.7 fl (80-96); MEAN PLT VOLUME 9.5 fl (7.5-11.1); PLATELET COUNT 215.7 10^3/uL (134-434); RBC 4.92 10^6/uL (3.60-5.2)
[2024-09-11 14:42] LABS: ALBUMIN 4.9 g/dl (3.4-5.0); ALK PHOS 190 U/L (45-117); ANION GAP 23 mmol/L (4-13); BILIRUBIN,TOTAL 0.3 mg/dl (0.2-1); CALCIUM 9.3 mg/dl (8.5-10.1); CHLORIDE 98 mmol/L (98-107); CO2 7 mmol/L (21-32); CREATININE 0.8 mg/dl (0.6-1.3); MAGNESIUM 1.9 mg/dL (1.8-2.4); POTASSIUM 3.3 mmol/L (3.5-5.1); SGOT/AST 8 U/L (15-37); SGPT/ALT 13 U/L (7-52); SODIUM 128 mmol/L (136-145); TOT PROT 7.8 g/dl (6.4-8.2)
[2024-09-11 14:48] LABS: GLUCOSE,RANDOM 421 mg/dl (74-106)
[2024-09-11 15:20] LABS: EPITHELIAL CELLS 0-5 /hpf
[2024-09-11] MEDS ORDERED: POTASSIUM CHLORIDE TABS 20 MEQ TABLET.ER (FP) PO ONE (15:26)
[2024-09-11] MEDS ORDERED: INSULIN REGULAR HUMAN 100 UNITS/ML *VIAL ONE (15:27)
[2024-09-11 15:28] LABS: VENOUS BASE EXCESS -23.4 mmol/L (-2-2); VENOUS O2 SATURATION 48.1 % (70-80)
[2024-09-11 15:41] LABS: PLATELET ESTIMATE ADEQUATE
[2024-09-11] MEDS: INSULIN REGULAR HUMAN 100 UNITS/ML *VIAL* (FOR IVP) IVPUSH ONE (15:41)
[2024-09-11] MEDS: INSULIN REGULAR 100 UNITS in SODIUM CHLORIDE 99 ML IVPB SCH (15:41)
[2024-09-11] MEDS: POTASSIUM CHLORIDE TABS 20 MEQ TABLET.ER (FP) PO ONE (15:41)
[2024-09-11 15:53] LABS: VENOUS PH 6.991 (7.310-7.410)
[2024-09-11] MEDS ORDERED: KCL 10 MEQ IVPB 10 MEQ/100 ML INFUS.BAG IVPB ONE ×2 (16:12→17:10)
[2024-09-11] MEDS: KCL 10 MEQ IVPB 10 MEQ/100 ML INFUS.BAG IVPB SCH ×2 (16:16→19:45)
[2024-09-11 17:58] LABS: ALK PHOS 151 U/L (45-117); ANION GAP 13 mmol/L (4-13); BILIRUBIN,TOTAL 0.3 mg/dl (0.2-1); CALCIUM 8.4 mg/dl (8.5-10.1); CHLORIDE 109 mmol/L (98-107); CO2 13 mmol/L (21-32); CREATININE 0.7 mg/dl (0.6-1.3); GLUCOSE,RANDOM 236 mg/dl (74-106); POTASSIUM 3.1 mmol/L (3.5-5.1); SGOT/AST 7 U/L (15-37); SGPT/ALT 10 U/L (7-52); SODIUM 135 mmol/L (136-145); TOT PROT 6.1 g/dl (6.4-8.2)
[2024-09-11 18:10] LABS: HIV INTERPRETATION NEGATIVE (NEGATIVE)
[2024-09-11] MEDS: LACTATED RINGERS SOLUTION 1000 ML INFUS.BAG IV ONE (19:45)
[2024-09-11] MEDS: POTASSIUM CHLORIDE ORAL LIQUID 20 MEQ/15 ML PO ONE (19:45)
[2024-09-11] MEDS: INSULIN (LEVEMIR) 100 UNITS/ML UNITS SQ SCH (20:50)
[2024-09-11 21:21] LABS: HEMATOCRIT 39.8 % (32.4-45.2); HEMOGLOBIN 13.3 GM/dL (10.7-15.3); MCH 31.4 pg (25.7-33.7); MCHC 33.4 g/dl (32.0-36.0); MEAN PLT VOLUME 8.8 fl (7.5-11.1); PLATELET COUNT 205 10^3/uL (134-434); RBC 4.23 M/mm3 (3.60-5.2); WHITE BLOOD COUNT 7.8 K/mm3 (4.0-10.0)
[2024-09-11 21:56] LABS: VENOUS BASE EXCESS -16.2 mmol/L (-2-2); VENOUS O2 SATURATION 33.3 % (70-80); VENOUS PCO2 29.2 mmHg (38-52)
[2024-09-11 21:59] LABS: POTASSIUM 3.9 mmol/L (3.5-5.1)
[2024-09-11 21:59] LABS: VENOUS PH 7.182 (7.310-7.410)
[2024-09-11 22:01] LABS: CALCIUM 8.8 mg/dL (8.5-10.1)
[2024-09-11 22:02] LABS: ALBUMIN 3.1 g/dl (3.4-5.0); BLOOD UREA NITROGEN 7.9 mg/dL (7-18); MAGNESIUM 1.8 mg/dL (1.8-2.4)
[2024-09-11 22:05] LABS: CREATININE 0.7 mg/dL (0.55-1.3); PHOSPHOROUS 1.5 mg/dL (2.5-4.9)
[2024-09-11 22:07] LABS: BILIRUBIN,TOTAL 0.4 mg/dL (0.2-1); TOT PROT 6.2 g/dl (6.4-8.2)
[2024-09-11 22:08] LABS: PH,URINE 5.5 (5.0-8.0); URINE APPEARANCE CLEAR; URINE BILIRUBIN NEGATIVE (NEGATIVE); URINE COLOR YELLOW; URINE GLUCOSE (UA) 3+ (NEGATIVE); URINE KETONE 1+ (NEGATIVE); URINE LEUK ESTERASE NEGATIVE (NEGATIVE); URINE NITRITE NEGATIVE (NEGATIVE); URINE PROTEIN NEGATIVE (NEGATIVE); URINE UROBILINOGEN 0.2 mg/dL (0.2-1.0)
[2024-09-11] MEDS: ATORVASTATIN CA 20 MG TABLET (FP) PO SCH (22:16)
[2024-09-11] MEDS: INSULIN ASPART SLIDING SCALE (NOVOLOG) 1 VIAL SQ SCH (22:16)
[2024-09-11] MEDS: MUPIROCIN 2% TOPICAL OINTMENT FOR DECOLONIZATION NS SCH (22:16)
[2024-09-11] MEDS: HEPARIN NA (PORCINE) 5,000 UNITS/ML 1ML VIAL SQ SCH (22:17)
[2024-09-11] MEDS: CHLORHEXIDINE GLUCONATE 4% CLEANSER FOR DECOLONIZATION TP SCH (22:17)
[2024-09-11] MEDS: LACTATED RINGERS SOLUTION 1,000 ML/1,000 ML INFUS.BAG IV SCH (22:19)
[2024-09-11] MEDS: NAPH,MB-DB/K PH,MBDB POWDER PACKET PO ONE (22:48)
[2024-09-12 07:28] LABS: BASO % 0.5 % (0-2.0); EOS % 1.2 % (0-4.5); HEMATOCRIT 38.4 % (32.4-45.2); HEMOGLOBIN 12.5 GM/dL (10.7-15.3); LYMPH % 33.3 % (8-40); MCH 30.7 pg (25.7-33.7); MCHC 32.7 g/dl (32.0-36.0); MEAN PLT VOLUME 9.2 fl (7.5-11.1); MONO % 13.6 % (3.8-10.2); NEUT % 51.4 % (42.8-82.8); PLATELET COUNT 209 10^3/uL (134-434); RBC 4.08 M/mm3 (3.60-5.2); RDW 13.2 % (11.6-15.6); WHITE BLOOD COUNT 4.7 K/mm3 (4.0-10.0)
[2024-09-12 07:58] LABS: BILIRUBIN,TOTAL 0.4 mg/dL (0.2-1); CALCIUM 8.8 mg/dL (8.5-10.1); TOT PROT 5.7 g/dl (6.4-8.2)
[2024-09-12 07:59] LABS: BLOOD UREA NITROGEN 7.1 mg/dL (7-18); MAGNESIUM 1.8 mg/dL (1.8-2.4)
[2024-09-12 08:00] LABS: CREATININE 0.5 mg/dL (0.55-1.3)
[2024-09-12] MEDS: POTASSIUM CHLORIDE ORAL LIQUID 20 MEQ/15 ML PO ONE (09:51)
[2024-09-12] MEDS: POTASSIUM PHOSPHATE 30 MM in SODIUM CHLORIDE 500 ML IVPB ONE (09:53)
[2024-09-12 14:38] VITALS: TEMP 98
[2024-09-12] MEDS: INSULIN ASPART SLIDING SCALE (NOVOLOG) 1 VIAL SQ SCH ×2 (16:49→21:19)
[2024-09-12] MEDS: INSULIN (LEVEMIR) 100 UNITS/ML UNITS SQ SCH (21:19)
[2024-09-13 07:00] LABS: BASO % 0.5 % (0-2.0); EOS % 2.5 % (0-4.5); HEMATOCRIT 33.2 % (32.4-45.2); HEMOGLOBIN 11.3 GM/dL (10.7-15.3); MCH 31.6 pg (25.7-33.7); MCHC 33.9 g/dl (32.0-36.0); MEAN CELL VOLUME 93.1 fl (80-96); MEAN PLT VOLUME 8.8 fl (7.5-11.1); MONO % 14.2 % (3.8-10.2); NEUT % 36.8 % (42.8-82.8); PLATELET COUNT 178 10^3/uL (134-434); RBC 3.57 M/mm3 (3.60-5.2); RDW 13.3 % (11.6-15.6); WHITE BLOOD COUNT 4.6 K/mm3 (4.0-10.0)
[2024-09-13 07:21] LABS: ALBUMIN 2.7 g/dl (3.4-5.0); CALCIUM 8.9 mg/dL (8.5-10.1)
[2024-09-13 07:22] LABS: BLOOD UREA NITROGEN 5.3 mg/dL (7-18); MAGNESIUM 1.6 mg/dL (1.8-2.4)
[2024-09-13 07:25] LABS: BILIRUBIN,TOTAL 0.3 mg/dL (0.2-1); CREATININE 0.4 mg/dL (0.55-1.3); PHOSPHOROUS 3.2 mg/dL (2.5-4.9)
[2024-09-13 07:26] LABS: TOT PROT 5.3 g/dl (6.4-8.2)
[2024-09-13] MEDS: POTASSIUM CHLORIDE TABS 20 MEQ TABLET.ER (FP) PO ONE (09:06)
[2024-09-13] MEDS: ASPIRIN 81 MG CHEWABLE TABLETS PO SCH (09:07)
[2024-09-13 11:29] VITALS: BP 100/58; PULSE 78; RESP 16
[2024-09-13] MEDS ORDERED: INSULIN ASPART SLIDING SCALE (NOVOLOG) 1 VIAL SQ ONE (12:22)
== END 2024-09-13 14:46 | disposition home or self-care (01) | DRG 420 ==
LOC: FER 13:03 → JICU 19:12
PROVIDERS: ADMIT Internal Medicine; ATTEND Family Medicine
DX: E11.10 Type 2 diabetes mellitus with ketoacidosis without coma (principal); I25.10 Atherosclerotic heart disease of native coronary artery without angina pectoris; J45.909 Unspecified asthma, uncomplicated; E87.6 Hypokalemia; E78.5 Hyperlipidemia, unspecified; E86.0 Dehydration; R00.2 Palpitations; R63.1 Polydipsia; E11.40 Type 2 diabetes mellitus with diabetic neuropathy, unspecified; Z95.5 Presence of coronary angioplasty implant and graft
CPT/HCPCS: 0241U-QW; 36415; 71046-TC-FY; 80053; 81003; 81015; 82010; 82803; 82962; 83735; 84100; 84436; 84443; 84479; 84484; 84703; 85025; 85027; 86803; 87389; 87481; 93005; 93306-TC; 99291; J1644

== ENCOUNTER 2024-10-25 07:19 | Inpatient (IN) | payer OTHER ==
[2024-10-25] MEDS: SODIUM CHLORIDE 0.9% 1000 ML INFUS.BAG IV ONE ×2 (07:36→08:23)
[2024-10-25 08:25] LABS: INR 0.88 (0.83-1.09); PROTHROMBIN TIME (PATIENT) 10.1 SEC (9.7-13.0)
[2024-10-25 08:31] LABS: HEMATOCRIT 49.9 % (32.4-45.2); HEMOGLOBIN 16.8 G/dL (10.7-15.3); MCH 31.8 pg (25.7-33.7); MCHC 33.7 g/dl (32.0-36.0); MEAN CELL VOLUME 94.6 fl (80-96); MEAN PLT VOLUME 9.6 fl (7.5-11.1); PLATELET COUNT 337.4 10^3/uL (134-434); RBC 5.28 10^6/uL (3.60-5.2); RDW 13.1 % (11.6-15.6); WHITE BLOOD COUNT 19.8 10^3/uL (4.0-10.8)
[2024-10-25 08:34] LABS: ALBUMIN 5.1 g/dl (3.4-5.0); BILIRUBIN,TOTAL 0.3 mg/dl (0.2-1); CALCIUM 9.5 mg/dl (8.5-10.1); CREATININE 0.9 mg/dl (0.6-1.3); MAGNESIUM 2.5 mg/dL (1.8-2.4); POTASSIUM 3.1 mmol/L (3.5-5.1); TOT PROT 8.3 g/dl (6.4-8.2)
[2024-10-25] MEDS ORDERED: cefTRIAXone SODIUM 1 GM VIAL ONE (08:44)
[2024-10-25] MEDS ORDERED: INSULIN DRIP - PLEASE ORDER UNDER SETS NR ONE (08:44)
[2024-10-25] MEDS ORDERED: KCL 10 MEQ IVPB 10 MEQ/100 ML INFUS.BAG IVPB ONE ×3 (08:44→11:22)
[2024-10-25] MEDS: CEFTRIAXONE 1 GM in DEXTROSE 5%-WATER - 100 ML IVPB ONE (08:55)
[2024-10-25] MEDS: KCL 10 MEQ IVPB 10 MEQ/100 ML INFUS.BAG IVPB SCH ×2 (08:55→22:26)
[2024-10-25 09:04] LABS: EPITHELIAL CELLS >50 /hpf
[2024-10-25 09:12] LABS: VENOUS BASE EXCESS -28.2 mmol/L (-2-2); VENOUS O2 SATURATION 80.6 % (70-80); VENOUS PCO2 19.2 mmHg (38-52)
[2024-10-25 09:14] LABS: VENOUS PH 6.901 (7.310-7.410)
[2024-10-25] MEDS: LACTATED RINGERS SOLUTION 1000 ML INFUS.BAG IV ONE (09:32)
[2024-10-25 09:35] LABS: LACTIC ACID 2.2 mmol/L (0.4-2.0); N-TERMINAL BNP 63.9 pg/ml (5-125)
[2024-10-25 09:41] LABS: PLATELET ESTIMATE ADEQUATE
[2024-10-25 11:57] LABS: VENOUS O2 SATURATION 98.4 % (70-80); VENOUS PCO2 18.7 mmHg (38-52)
[2024-10-25 12:00] LABS: VENOUS BASE EXCESS -32.6 mmol/L (-2-2)
[2024-10-25 12:02] LABS: VENOUS PH 6.751 (7.310-7.410)
[2024-10-25] MEDS ORDERED: POTASSIUM CHLORIDE ORAL LIQUID 20 MEQ/15 ML ONE (12:15)
[2024-10-25] MEDS ORDERED: INSULIN REGULAR HUMAN 100 UNITS/ML *VIAL* (FOR IVP) IVPUSH ONE (12:27)
[2024-10-25] MEDS: POTASSIUM CHLORIDE ORAL LIQUID 20 MEQ/15 ML PO ONE (12:29)
[2024-10-25] MEDS: SODIUM CHLORIDE 0.9%/KCL 20 MEQ/1,000 ML INFUS.BAG IV SCH ×2 (12:29→14:00)
[2024-10-25 12:30] LABS: LACTIC ACID 2.4 mmol/L (0.4-2.0)
[2024-10-25] MEDS: INSULIN REGULAR 100 UNITS in SODIUM CHLORIDE 99 ML IVPB SCH (12:30)
[2024-10-25] MEDS ORDERED: SODIUM BICARBONATE 8.4% 50 MEQ/50 ML DISP.SYRIN ONE (13:32)
[2024-10-25] MEDS: SODIUM BICARBONATE 8.4% 50 MEQ/50 ML DISP.SYRIN IVPUSH ONE ×2 (13:37)
[2024-10-25 14:58] LABS: LACTIC ACID 2.4 mmol/L (0.4-2.0)
[2024-10-25 17:51] LABS: POTASSIUM 3.4 mmol/L (3.5-5.1)
[2024-10-25 17:53] LABS: CALCIUM 8.2 mg/dL (8.5-10.1)
[2024-10-25 17:54] LABS: ALBUMIN 3.7 g/dl (3.4-5.0); BLOOD UREA NITROGEN 16.6 mg/dL (7-18)
[2024-10-25 17:57] LABS: CREATININE 0.9 mg/dL (0.55-1.3)
[2024-10-25 17:58] LABS: BILIRUBIN,TOTAL 0.4 mg/dL (0.2-1); TOT PROT 7.6 g/dl (6.4-8.2)
[2024-10-25] MEDS: MUPIROCIN 2% TOPICAL OINTMENT FOR DECOLONIZATION NS SCH (18:13)
[2024-10-25 18:24] LABS: LACTIC ACID 2.3 mmol/L (0.4-2.0)
[2024-10-25] MEDS: D5-NS + 20 MEQ KCL - 20 MEQ/1,000 ML INFUS.BAG IV SCH (20:45)
[2024-10-25 20:59] LABS: POTASSIUM 3.4 mmol/L (3.5-5.1)
[2024-10-25 21:02] LABS: ALBUMIN 3.6 g/dl (3.4-5.0); BLOOD UREA NITROGEN 16.1 mg/dL (7-18); CALCIUM 8.5 mg/dL (8.5-10.1)
[2024-10-25 21:05] LABS: CREATININE 0.8 mg/dL (0.55-1.3)
[2024-10-25 21:07] LABS: BILIRUBIN,TOTAL 0.4 mg/dL (0.2-1); TOT PROT 7.1 g/dl (6.4-8.2)
[2024-10-25 21:12] LABS: LACTIC ACID 2.4 mmol/L (0.4-2.0)
[2024-10-25] MEDS ORDERED: BENZOCAINE/MENTH/CETYLPYRD CL 1 EACH LOZENGE MM PRN (21:59)
[2024-10-25] MEDS ORDERED: CHLORHEXIDINE GLUCONATE 4% CLEANSER FOR DECOLONIZATION TP SCH (22:00)
[2024-10-25] MEDS: ATORVASTATIN CA 20 MG TABLET (FP) PO SCH (22:26)
[2024-10-25] MEDS: BUDESONIDE/FORMETEROL FUMARATE 160/4.5 mcg INHALER IH SCH (22:26)
[2024-10-25 22:28] LABS: VENOUS BASE EXCESS -18.8 mmol/L (-2-2); VENOUS PCO2 18.2 mmHg (38-52)
[2024-10-25 22:31] LABS: VENOUS PH 7.196 (7.310-7.410)
[2024-10-26 01:33] LABS: CALCIUM 8.6 mg/dL (8.5-10.1)
[2024-10-26 01:34] LABS: ALBUMIN 3.1 g/dl (3.4-5.0); BLOOD UREA NITROGEN 13.3 mg/dL (7-18)
[2024-10-26 01:37] LABS: CREATININE 0.8 mg/dL (0.55-1.3)
[2024-10-26 01:38] LABS: BILIRUBIN,TOTAL 0.4 mg/dL (0.2-1); TOT PROT 6.1 g/dl (6.4-8.2)
[2024-10-26] MEDS: POTASSIUM CHLORIDE TABS 20 MEQ TABLET.ER (FP) PO ONE ×3 (06:13→20:10)
[2024-10-26] MEDS: KCL 10 MEQ IVPB 10 MEQ/100 ML INFUS.BAG IVPB SCH ×2 (07:02→22:57)
[2024-10-26 07:22] LABS: BASO % 0.1 % (0-2.0); HEMOGLOBIN 12.4 GM/dL (10.7-15.3); LYMPH % 9.1 % (8-40); MCH 31.1 pg (25.7-33.7); MCHC 34.3 g/dl (32.0-36.0); MEAN CELL VOLUME 90.7 fl (80-96); MEAN PLT VOLUME 8.6 fl (7.5-11.1); NEUT % 76.8 % (42.8-82.8); PLATELET COUNT 224 10^3/uL (134-434); RBC 3.97 M/mm3 (3.60-5.2); RDW 12.7 % (11.6-15.6); WHITE BLOOD COUNT 11.5 K/mm3 (4.0-10.0)
[2024-10-26 07:41] LABS: CHLORIDE 118 mmol/L (98-107); SODIUM 142 mmol/L (136-145)
[2024-10-26 07:45] LABS: BLOOD UREA NITROGEN 12.6 mg/dL (7-18); CALCIUM 8.8 mg/dL (8.5-10.1); CO2 13 mmol/L (21-32); GLUCOSE,RANDOM 162 mg/dL (74-106)
[2024-10-26 07:48] LABS: CREATININE 0.8 mg/dL (0.55-1.3); SGOT/AST 9 U/L (15-37); SGPT/ALT 10 U/L (13-61)
[2024-10-26 07:50] LABS: BILIRUBIN,TOTAL 0.3 mg/dL (0.2-1); TOT PROT 5.9 g/dl (6.4-8.2)
[2024-10-26 07:51] LABS: ALK PHOS 138 U/L (45-117)
[2024-10-26 07:52] LABS: ANION GAP 11 mmol/L (4-13); POTASSIUM 2.8 mmol/L (3.5-5.1)
[2024-10-26] MEDS: CEFTRIAXONE 1 G/50 ML PREMIX 50 ML IVPB SCH (09:35)
[2024-10-26] MEDS: ASPIRIN 81 MG CHEWABLE TABLETS PO SCH (09:36)
[2024-10-26 10:12] LABS: ARTERIAL BLD GAS O2 SATURATION 97.2 % (95-98); ARTERIAL BLOOD GAS BASE EXCESS -14.8 mmol/L (-2-2); ARTERIAL BLOOD GAS pH 7.269 (7.350-7.450)
[2024-10-26 10:15] LABS: ALLENS TEST POSITIVE
[2024-10-26] MEDS ORDERED: POTASSIUM CHLORIDE ORAL LIQUID 20 MEQ/15 ML PO ONE ×2 (11:30→12:09)
[2024-10-26 11:37] LABS: POTASSIUM 3.3 mmol/L (3.5-5.1)
[2024-10-26 11:39] LABS: CALCIUM 8.5 mg/dL (8.5-10.1)
[2024-10-26] MEDS: VANCOMYCIN 1 GM PREMIX (F) 1 GM/200 ML BAG IVPB ONE (11:39)
[2024-10-26 11:40] LABS: ALBUMIN 2.9 g/dl (3.4-5.0); BLOOD UREA NITROGEN 11.1 mg/dL (7-18); MAGNESIUM 1.7 mg/dL (1.8-2.4)
[2024-10-26] MEDS: INSULIN (LEVEMIR) 100 UNITS/ML UNITS SQ SCH ×2 (11:40→22:56)
[2024-10-26 11:43] LABS: CREATININE 0.6 mg/dL (0.55-1.3)
[2024-10-26] MEDS: INSULIN ASPART SLIDING SCALE (NOVOLOG) 1 VIAL SQ SCH ×2 (11:43→22:56)
[2024-10-26 11:44] LABS: BILIRUBIN,TOTAL 0.4 mg/dL (0.2-1); TOT PROT 5.9 g/dl (6.4-8.2)
[2024-10-26] MEDS ORDERED: MAGNESIUM SULF 50% (8.12 MEQ/2 ML-1 GM VIAL) IVPB ONE (11:59)
[2024-10-26] MEDS ORDERED: CEFTRIAXONE 1,000 MG in DEXTROSE 5%-WATER - 50 ML IVPB ONE (12:00)
[2024-10-26] MEDS ORDERED: POTASSIUM CHLORIDE TABS 20 MEQ TABLET.ER (FP) PO ONE (13:30)
[2024-10-26] MEDS ORDERED: INSULIN REGULAR HUMAN 100 UNITS/ML *VIAL ONE (13:33)
[2024-10-26] MEDS: INSULIN REGULAR HUMAN 100 UNITS/ML *VIAL* (FOR IVP) IVPUSH ONE ×2 (13:39→20:48)
[2024-10-26] MEDS: SODIUM CHLORIDE 1,000 ML IV STA (13:40)
[2024-10-26] MEDS: INSULIN REGULAR 100 UNITS in SODIUM CHLORIDE 99 ML IVPB SCH ×2 (13:40→19:00)
[2024-10-26] MEDS: MAGNESIUM 2GM/50ML STERILE WATER IVPB IVPB ONE (13:40)
[2024-10-26] MEDS ORDERED: DEXTROSE 50%-WATER 25 GM/50 ML DISP.SYRIN ONE (15:42)
[2024-10-26] MEDS: DEXTROSE 50%-WATER - 25 GM/50 ML VIAL IVPUSH PRN (15:48)
[2024-10-26] MEDS ORDERED: DEXTROSE 50%-WATER 25 GM/50 ML DISP.SYRIN IVPUSH PRN (17:18)
[2024-10-26 18:13] LABS: CHLORIDE 119 mmol/L (98-107); SODIUM 145 mmol/L (136-145)
[2024-10-26 18:16] LABS: BLOOD UREA NITROGEN 8.7 mg/dL (7-18); CALCIUM 8.5 mg/dL (8.5-10.1); CO2 19 mmol/L (21-32)
[2024-10-26 18:17] LABS: GLUCOSE,RANDOM 65 mg/dL (74-106)
[2024-10-26 18:20] LABS: CREATININE 0.6 mg/dL (0.55-1.3)
[2024-10-26 18:26] LABS: ANION GAP 6 mmol/L (4-13); POTASSIUM 2.8 mmol/L (3.5-5.1)
[2024-10-26] MEDS: POTASSIUM CHLORIDE ORAL LIQUID 20 MEQ/15 ML PO ONE ×2 (18:44→20:10)
[2024-10-26] MEDS ORDERED: DEXTROSE 50%-WATER - 25 GM/50 ML VIAL IVPUSH PRN (18:45)
[2024-10-26] MEDS ORDERED: SODIUM CHLORIDE 1,000 ML IV SCH (18:45)
[2024-10-26] MEDS: D5-NS + 20 MEQ KCL - 20 MEQ/1,000 ML INFUS.BAG IV SCH (20:48)
[2024-10-26] MEDS ORDERED: POTASSIUM CHLORIDE ORAL LIQUID 20 MEQ/15 ML PO SCH (22:00)
[2024-10-26 22:21] LABS: POTASSIUM 3.4 mmol/L (3.5-5.1)
[2024-10-26 22:23] LABS: BLOOD UREA NITROGEN 6.5 mg/dL (7-18); CALCIUM 8.5 mg/dL (8.5-10.1)
[2024-10-26 22:26] LABS: CREATININE 0.5 mg/dL (0.55-1.3)
[2024-10-26 22:28] LABS: BILIRUBIN,TOTAL 0.3 mg/dL (0.2-1)
[2024-10-27 08:10] LABS: HEMATOCRIT 32.9 % (32.4-45.2); HEMOGLOBIN 11.4 GM/dL (10.7-15.3); MCH 31.4 pg (25.7-33.7); MCHC 34.8 g/dl (32.0-36.0); MEAN CELL VOLUME 90.4 fl (80-96); MEAN PLT VOLUME 8.5 fl (7.5-11.1); PLATELET COUNT 212 10^3/uL (134-434); RBC 3.63 M/mm3 (3.60-5.2); RDW 12.8 % (11.6-15.6); WHITE BLOOD COUNT 7.4 K/mm3 (4.0-10.0)
[2024-10-27 08:28] LABS: CHLORIDE 119 mmol/L (98-107); POTASSIUM 3.2 mmol/L (3.5-5.1); SODIUM 146 mmol/L (136-145)
[2024-10-27 08:32] LABS: ALBUMIN 2.8 g/dl (3.4-5.0); ANION GAP 7 mmol/L (4-13); CALCIUM 8.6 mg/dL (8.5-10.1); CO2 20 mmol/L (21-32); MAGNESIUM 2.4 mg/dL (1.8-2.4)
[2024-10-27 08:33] LABS: GLUCOSE,RANDOM 64 mg/dL (74-106)
[2024-10-27 08:35] LABS: SGOT/AST 14 U/L (15-37); SGPT/ALT 11 U/L (13-61)
[2024-10-27 08:36] LABS: CREATININE 0.5 mg/dL (0.55-1.3)
[2024-10-27 08:37] LABS: BILIRUBIN,TOTAL 0.4 mg/dL (0.2-1); TOT PROT 5.7 g/dl (6.4-8.2)
[2024-10-27 08:38] LABS: ALK PHOS 122 U/L (45-117)
[2024-10-27 08:57] LABS: PHOSPHOROUS 0.5 mg/dL (2.5-4.9)
[2024-10-27] MEDS: KCL 10 MEQ IVPB 10 MEQ/100 ML INFUS.BAG IVPB SCH (08:57)
[2024-10-27] MEDS: POTASSIUM CHLORIDE TABS 20 MEQ TABLET.ER (FP) PO ONE (08:57)
[2024-10-27 09:22] LABS: CHOLESTEROL 151 mg/dL (50-200)
[2024-10-27 09:23] LABS: LDL CHOLESTEROL (ONLY SJRH) 91 mg/dL (5-100)
[2024-10-27 09:24] LABS: HDL CHOLESTEROL 43 mg/dL (40-60)
[2024-10-27] MEDS: FAMOTIDINE 20 MG/50 ML IVPB 20 MG/50 ML MG IVPB SCH ×2 (10:26→21:24)
[2024-10-27] MEDS ORDERED: INSULIN ASPART SLIDING SCALE (NOVOLOG) 1 VIAL SQ ONE (10:29)
[2024-10-27] MEDS: POTASSIUM PHOSPHATE 30 MM in DEXTROSE 5%-WATER - 250 ML IVPB ONE (11:49)
[2024-10-27] MEDS ORDERED: BENZOCAINE/MENTH/CETYLPYRD CL 1 EACH LOZENGE MM PRN (14:08)
[2024-10-27] MEDS ORDERED: DEXTROSE 50%-WATER - 25 GM/50 ML VIAL IVPUSH PRN (14:08)
[2024-10-27] MEDS ORDERED: DEXTROSE 50%-WATER 25 GM/50 ML DISP.SYRIN IVPUSH PRN ×2 (14:08→23:44)
[2024-10-27] MEDS: NAPH,MB-DB/K PH,MBDB POWDER PACKET PO SCH (15:09)
[2024-10-27] MEDS: INSULIN ASPART SLIDING SCALE (NOVOLOG) 1 VIAL SQ SCH (16:08)
[2024-10-27] MEDS: D5-NS + 20 MEQ KCL - 20 MEQ/1,000 ML INFUS.BAG IV SCH (19:45)
[2024-10-27] MEDS: INSULIN (LEVEMIR) 100 UNITS/ML UNITS SQ SCH (21:23)
[2024-10-27] MEDS: ATORVASTATIN CA 20 MG TABLET (FP) PO SCH (21:24)
[2024-10-27] MEDS: POLYETHYLENE GLYCOL (HEALTHYLAX) 3350 17 GM PACKET PO SCH (21:28)
[2024-10-27] MEDS: BUDESONIDE/FORMETEROL FUMARATE 160/4.5 mcg INHALER IH SCH (23:00)
[2024-10-28] MEDS: INSULIN (NOVOLOG) ASPART 100 UNITS/ML 10ML VIAL SQ SCH (06:32)
[2024-10-28] MEDS: CEFTRIAXONE 1 G/50 ML PREMIX 50 ML IVPB SCH (09:06)
[2024-10-28] MEDS: ASPIRIN 81 MG CHEWABLE TABLETS PO SCH (09:06)
[2024-10-28 09:15] LABS: HEMATOCRIT 31.2 % (32.4-45.2); HEMOGLOBIN 10.9 GM/dL (10.7-15.3); MCH 31.8 pg (25.7-33.7); MCHC 34.9 g/dl (32.0-36.0); MEAN PLT VOLUME 8.8 fl (7.5-11.1); PLATELET COUNT 170 10^3/uL (134-434); RBC 3.43 M/mm3 (3.60-5.2); RDW 12.9 % (11.6-15.6); WHITE BLOOD COUNT 4.2 K/mm3 (4.0-10.0)
[2024-10-28 09:43] LABS: POTASSIUM 3.7 mmol/L (3.5-5.1)
[2024-10-28 09:51] LABS: MAGNESIUM 1.9 mg/dL (1.8-2.4)
[2024-10-28 09:54] LABS: CALCIUM 8.6 mg/dL (8.5-10.1); CREATININE 0.6 mg/dL (0.55-1.3); PHOSPHOROUS 2.3 mg/dL (2.5-4.9)
[2024-10-28 09:55] LABS: ALBUMIN 2.8 g/dl (3.4-5.0); TOT PROT 5.5 g/dl (6.4-8.2)
[2024-10-28 10:09] LABS: BILIRUBIN,TOTAL 0.4 mg/dL (0.2-1)
[2024-10-28 16:03] VITALS: BMI 17.9
[2024-10-30] MEDS: D5-NS + 20 MEQ KCL - 20 MEQ/1,000 ML INFUS.BAG IV SCH (01:11)
[2024-10-30] MEDS ORDERED: INSULIN ASPART SLIDING SCALE (NOVOLOG) 1 VIAL SQ ONE ×2 (06:53→11:55)
[2024-10-30 08:57] LABS: CHLORIDE 111 mmol/L (98-107); HEMATOCRIT 33.9 % (32.4-45.2); HEMOGLOBIN 11.3 GM/dL (10.7-15.3); MCHC 33.3 g/dl (32.0-36.0); MEAN CELL VOLUME 93.2 fl (80-96); MEAN PLT VOLUME 9.2 fl (7.5-11.1); PLATELET COUNT 262 10^3/uL (134-434); POTASSIUM 3.5 mmol/L (3.5-5.1); RBC 3.64 M/mm3 (3.60-5.2); RDW 12.7 % (11.6-15.6); SODIUM 146 mmol/L (136-145)
[2024-10-30 08:59] LABS: ALBUMIN 2.8 g/dl (3.4-5.0); CALCIUM 8.7 mg/dL (8.5-10.1)
[2024-10-30 09:00] LABS: ANION GAP 6 mmol/L (4-13); BLOOD UREA NITROGEN 10.1 mg/dL (7-18); CO2 28 mmol/L (21-32)
[2024-10-30 09:02] LABS: SGPT/ALT 41 U/L (13-61)
[2024-10-30 09:03] LABS: CREATININE 0.6 mg/dL (0.55-1.3); PHOSPHOROUS 4.2 mg/dL (2.5-4.9); SGOT/AST 23 U/L (15-37)
[2024-10-30 09:04] LABS: BILIRUBIN,TOTAL 0.2 mg/dL (0.2-1); TOT PROT 5.6 g/dl (6.4-8.2)
[2024-10-30 09:05] LABS: ALK PHOS 111 U/L (45-117)
[2024-10-30 09:20] LABS: GLUCOSE,RANDOM 43 mg/dL (74-106)
[2024-10-30] MEDS: metroNIDAZOLE 250 MG TABLET PO SCH (17:03)
[2024-10-30] MEDS: POTASSIUM CHLORIDE ORAL LIQUID 20 MEQ/15 ML PO ONE (18:07)
[2024-10-31] MEDS: CEFTRIAXONE 2 GM-D5W BAG 2 GM/50 ML BAG IVPB SCH (09:37)
[2024-10-31 10:16] LABS: CALCIUM 8.3 mg/dL (8.5-10.1)
[2024-10-31 10:17] LABS: ALBUMIN 2.7 g/dl (3.4-5.0); BLOOD UREA NITROGEN 7.3 mg/dL (7-18)
[2024-10-31 10:20] LABS: CREATININE 0.6 mg/dL (0.55-1.3)
[2024-10-31 10:22] LABS: BILIRUBIN,TOTAL 0.2 mg/dL (0.2-1); TOT PROT 5.6 g/dl (6.4-8.2)
[2024-10-31] MEDS: ACETAMINOPHEN 500 MG TABLET (FP) PO ONE (21:10)
[2024-11-01 10:23] VITALS: BP 129/78; PULSE 75; RESP 18; TEMP 98.4
== END 2024-11-01 14:00 | disposition home or self-care (01) | DRG 420 ==
LOC: FER 07:19 → JICU 13:12 → J6S 10-27 14:44
PROVIDERS: ADMIT Family Medicine; ATTEND Family Medicine
DX: E11.10 Type 2 diabetes mellitus with ketoacidosis without coma (principal); E83.39 Other disorders of phosphorus metabolism; L02.31 Cutaneous abscess of buttock; I42.9 Cardiomyopathy, unspecified; E87.6 Hypokalemia; D72.829 Elevated white blood cell count, unspecified; E78.5 Hyperlipidemia, unspecified; I25.10 Atherosclerotic heart disease of native coronary artery without angina pectoris; R00.0 Tachycardia, unspecified; N39.0 Urinary tract infection, site not specified; B95.1 Streptococcus, group B, as the cause of diseases classified elsewhere; B95.4 Other streptococcus as the cause of diseases classified elsewhere; R11.2 Nausea with vomiting, unspecified; Z91.148 Patient's other noncompliance with medication regimen for other reason
CPT/HCPCS: 0241U-QW; 36415; 36600; 71045-TC-FY; 80048; 80053; 80061; 81003; 81015; 82010; 82803; 82962; 83036; 83605; 83735; 83880; 84100; 84439; 84443; 84484; 84703; 85025; 85027; 85610; 87040; 87077; 87086; 87186; 93005; 99291